=== PATIENT | female | born 1985 | race Two or more races ===

== ENCOUNTER → 2016-12-27 | Outpatient (CLI) | payer MEDICAID | LOC: FIMAGING 10:14 | PROVIDERS: ATTEND Obstetrics & Gynecology | DX: Z34.92 Encounter for supervision of normal pregnancy, unspecified, second trimester (principal); Z3A.24 24 weeks gestation of pregnancy; Z87.59 Personal history of other complications of pregnancy, childbirth and the puerperium ==